=== PATIENT | male | born 1975 | race Caucasian/White ===

== ENCOUNTER 2021-08-11 11:40 | Inpatient (IN) | payer OTHER, MEDICAID ==
[~2021-08-11] VITALS: Ht 177.8 cm; Wt 91.3 kg
[~2021-08-11 11:40] MED LIST: ALEVE220 MG PO; ALPRAZOLAM ER1 MG PO; AMOXICILLIN 50500 MG PO; AUGMENTIN 875875 MG PO; AZITHROMYCIN 2250 MG PO; CARISOPRODOL 3350 MG; CARISOPRODOL 3350 MG PO; CHERATUSSIN DA480 ML PO; CYCLOBENZAPRINE10 MG PO; FLEXERIL PO; FLURBIPROFEN100 MG PO; HYDROCODON-ACE1 EACH PO; HYDROCODONE-AP1 EAC6 PO; IBUPROFEN 200200 M1; IBUPROFEN 600600 M1 PO; IBUPROFEN 800800 MG PO; MEDROLDOSEPACK PO; MOBIC7.5 MG PO; NAPROSYN375 MG PO; NAPROSYN500 MG PO; NAPROXEN250 MG PO; NOHOMEMEDICATIONS; NORCO 5-325 TA1 EAC1 PO; NORCO 5-325 TA1 EACH PO; NORFLEX100 MG PO; PENICILLIN V P500 MG PO; PENICILLIN VK500 M1 PO; PENICILLIN VK500 MG PO; PERCOCET 10-321 EACH PO; PERCOCET 5-3251 EACH PO; PROPRANOLOL 1010 MG PO; PROPRANOLOL 4040 M1 PO; SKELAXIN 800 M800 M1 PO; TRAMADOL 50 MG50 MG PO; TUSSIONEX PENN473 ML PO; TYLENOL325 MG; ULTRACET TABLE1 EACH PO; ULTRAM 50MG TAB50 MG PO; VICODIN 5-5001 EACH PO; XANAX 1 MG TABLE1 MG PO; ZANTAC 150MG T150 M1 PO; ZANTAC 150MG T150 MG PO
[2021-08-11 11:50] VITALS: BP 143/91
[2021-08-11 13:32] LABS: ABSOLUTE BASOPHILS 0.1 thou/uL (0.0-0.2); ABSOLUTE LYMPHOCYTES 1.7 thou/uL (0.8-5.3); ABSOLUTE MONOCYTES 0.8 thou/uL (0.0-1.2); ABSOLUTE NEUTROPHILS 9.9 thou/uL (1.6-8.1); BASOPHILS 0.7 %; EOSINOPHILS 0.2 %; HEMATOCRIT 41.4 % (42.0-52.0); HEMOGLOBIN 13.9 gm/dL (14.0-18.0); LYMPHOCYTES 13.8 %; MCH 27.9 pg (26.0-34.0); MCHC 33.6 g/dL (28.0-37.0); MCV 83.3 fL (80.0-100.0); MONOCYTES 6.4 %; MPV 7.3 fl. (7.2-11.1); NUCLEATED RBCS 0 /100WBC; PLATELET COUNT* 282 thou/uL (150-400); POLYS 78.9 %; RBC 4.97 mil/uL (4.50-6.00); RDW-CV 15.1 % (10.5-14.5); WBC 12.6 thou/uL (4.0-11.0)
[2021-08-11 13:41] LABS: CALCIUM 8.6 mg/dL (8.5-10.1); CREATININE 1.1 mg/dL (0.6-1.3); POTASSIUM 3.3 mmol/L (3.5-5.1)
[2021-08-11 13:45] LABS: ALBUMIN 4.1 g/dL (3.4-5.0); TOTAL BILIRUBIN 0.4 mg/dL (<0.1-1.0); TOTAL PROTEIN 7.9 g/dL (6.4-8.2)
[2021-08-11 17:31] VITALS: BP 144/81
[2021-08-11 17:45] VITALS: BP 139/90
[2021-08-11] MEDS ORDERED: LISINOPRIL5 MG PO (19:14)
[2021-08-11] MEDS ORDERED: PROPRANOLOL 20M20 M1 PO (19:14)
[2021-08-11] MEDS ORDERED: NEXIUM 24HR20 M2 PO (19:15)
[2021-08-11 21:45] VITALS: BP 156/99
[2021-08-12 00:46] VITALS: BP 135/89
[2021-08-12 04:50] LABS: HEMATOCRIT 35.6 % (42.0-52.0); MCH 28.1 pg (26.0-34.0); MCHC 33.8 g/dL (28.0-37.0); MPV 7.5 fl. (7.2-11.1); RBC 4.29 mil/uL (4.50-6.00)
[2021-08-12 05:02] LABS: CALCIUM 7.3 mg/dL (8.5-10.1); CREATININE 0.9 mg/dL (0.6-1.3); POTASSIUM 3.2 mmol/L (3.5-5.1)
[2021-08-12 08:00] VITALS: BP 147/86
--- NOTE | 2021-08-12 09:24 | EKG ---
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
[2021-08-12 13:17] LABS: AMP/METHAMP Negative (Negative); BARBITURATES Negative (Negative); BENZODIAZEPINES Negative (Negative); COCAINE Negative (Negative); METHADONE Negative (Negative); OPIATES POSITIVE (Negative); PCP Negative (Negative); THC Negative (Negative)
[2021-08-12 16:00] VITALS: BP 150/95
[2021-08-12 20:15] VITALS: BP 147/89
[2021-08-13 08:01] LABS: ABSOLUTE BASOPHILS 0.1 thou/uL (0.0-0.2); ABSOLUTE EOSINOPHILS 0.2 thou/uL (0.0-0.7); ABSOLUTE LYMPHOCYTES 1.7 thou/uL (0.8-5.3); ABSOLUTE MONOCYTES 0.5 thou/uL (0.0-1.2); BASOPHILS 1.1 %; EOSINOPHILS 3.3 %; HEMATOCRIT 33.3 % (42.0-52.0); HEMOGLOBIN 11.4 gm/dL (14.0-18.0); MCH 28.6 pg (26.0-34.0); MCHC 34.1 g/dL (28.0-37.0); MCV 83.7 fL (80.0-100.0); MONOCYTES 8.6 %; MPV 7.2 fl. (7.2-11.1); NUCLEATED RBCS 0 /100WBC; PLATELET COUNT* 183 thou/uL (150-400); RBC 3.98 mil/uL (4.50-6.00); RDW-CV 14.8 % (10.5-14.5); WBC 5.4 thou/uL (4.0-11.0)
[2021-08-13 08:10] VITALS: BP 116/81
[2021-08-13 08:12] LABS: CALCIUM 7.8 mg/dL (8.5-10.1); CREATININE 0.9 mg/dL (0.6-1.3); MAGNESIUM 1.7 mg/dL (1.8-2.4); PHOSPHORUS* 2.9 mg/dL (2.5-4.9); POTASSIUM 3.4 mmol/L (3.5-5.1)
[2021-08-13 15:30] VITALS: BP 133/86
[2021-08-13 19:48] VITALS: BP 145/83
[2021-08-14 05:42] LABS: MAGNESIUM 1.8 mg/dL (1.8-2.4); POTASSIUM 3.3 mmol/L (3.5-5.1)
[2021-08-14 08:00] VITALS: BP 150/87
[2021-08-14] MEDS ORDERED: PNV 29-1 TABLE1 EACH PO (09:50)
[2021-08-14] MEDS ORDERED: VITAMIN B-1100 M2 PO (09:50)
[2021-08-14 12:38] VITALS: BP 150/87
[2021-08-14 12:55] VITALS: BP 150/87
== END 2021-08-14 13:00 | disposition home or self-care (01) | DRG 440 ==
LOC: M.ERS 11:40 → M.3W 15:00 → M.TBA-ER 15:00 → M.3W 17:39
PROVIDERS: Family Medicine; Nurse Practitioner Family; ADMIT Internal Medicine; ATTEND Internal Medicine
DX: K85.20 Alcohol induced acute pancreatitis without necrosis or infection (principal); Z20.822 Contact with and (suspected) exposure to COVID-19; E87.6 Hypokalemia; I10 Essential (primary) hypertension; K21.9 Gastro-esophageal reflux disease without esophagitis; Z71.41 Alcohol abuse counseling and surveillance of alcoholic; Z87.891 Personal history of nicotine dependence

== ENCOUNTER 2021-10-17 09:32 | Inpatient (IN) | payer OTHER, MEDICAID ==
[~2021-10-17] VITALS: Ht 177.8 cm; Wt 88.5 kg
[~2021-10-17 09:32] MED LIST changes: +LISINOPRIL5 MG PO; +NEXIUM 24HR20 M2 PO; +PNV 29-1 TABLE1 EACH PO; +PROPRANOLOL 20M20 M1 PO; +VITAMIN B-1100 M2 PO
[2021-10-17 10:16] VITALS: BP 130/96
[2021-10-17 11:04] LABS: ABSOLUTE BASOPHILS 0.1 thou/uL (0.0-0.2); ABSOLUTE LYMPHOCYTES 1.5 thou/uL (0.8-5.3); ABSOLUTE MONOCYTES 0.5 thou/uL (0.0-1.2); ABSOLUTE NEUTROPHILS 4.6 thou/uL (1.6-8.1); HEMATOCRIT 39.9 % (42.0-52.0); HEMOGLOBIN 13.6 gm/dL (14.0-18.0); LYMPHOCYTES 22.3 %; MCV 85.1 fL (80.0-100.0); MONOCYTES 7.4 %; MPV 7.1 fl. (7.2-11.1); NUCLEATED RBCS 0 /100WBC; PLATELET COUNT* 311 thou/uL (150-400); POLYS 69.3 %; RBC 4.69 mil/uL (4.50-6.00); RDW-CV 17.4 % (10.5-14.5); WBC 6.7 thou/uL (4.0-11.0)
[2021-10-17 11:12] LABS: CALCIUM 8.6 mg/dL (8.5-10.1); CREATININE 2.5 mg/dL (0.6-1.3); POTASSIUM 3.3 mmol/L (3.5-5.1)
[2021-10-17 11:16] LABS: ALBUMIN 4.1 g/dL (3.4-5.0); TOTAL BILIRUBIN 0.4 mg/dL (<0.1-1.0); TOTAL PROTEIN 8.3 g/dL (6.4-8.2)
--- NOTE | 2021-10-17 11:23 | NUR ---
SPOKE TO POISON CONTROL NIKKI REGARDING ALCOHOL POSIONING. SHE RECOMMENDS AN ISOPROPYL LEVEL, ACETONE, SERUM OSMOLARITY, CO INGESTION LAVS INCLUDING TYLENOL AND SALYILATE, AND SUPPORTIVE CARE. SPOKE TO MARGARITA BUSCH REGARDING FINDINGS
[2021-10-17 11:47] LABS: SALICYLATE < 2.8 mg/dL (2.8-20.0)
[2021-10-17 11:48] LABS: ACETAMINOPHEN < 2 ug/mL (10-30)
--- NOTE | 2021-10-17 11:58 | EKG ---
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 : 1975 Requested By: Lopez Herrera Order Number: [id number] MD: Fidencio Cruz Measurements Intervals [place] Rate: 112 P: 58 [place]: 144 QRS: 10 QRSD: 99 T: 6 QT: 334 QTc: 456 Interpretive Statements Sinus tachycardia Low voltage, precordial leads Baseline wander in lead(s) V4 Compared to ECG 08/11/2021 15:02:46 Low QRS voltage now present Sinus rate has increased Electronically Signed On 10-17-2021 11:57:48 LIFE CONSULTANT by Fidencio Cruz [email or web address] <ELECTRONICALLY SIGNED> By: Fidencio Cruz MD, FAC 10/17/21 1157 1052 1052 Fidencio Cruz MD, [facility] /EPI
[2021-10-17 12:06] LABS: URINE BILIRUBIN NEGATIVE (Negative); URINE BLOOD TRACE (Negative); URINE CLARITY CLEAR; URINE COLOR YELLOW; URINE GLUCOSE-RANDOM NEGATIVE (Negative); URINE KETONES 1+ (Negative); URINE LEUKOCYTES-REFLEX NEGATIVE (Negative); URINE NITRITE-REFLEX NEGATIVE (Negative); URINE PROTEIN 1+ (Negative); URINE UROBILINOGEN 0.2 E.U./dl (0.2-1.0)
[2021-10-17 12:37] LABS: CASTS None Seen /LPF (None Seen); SQUAMOUS NONE SEEN /LPF (0-3); URINE RBC None Seen /HPF (0-2); URINE WBC-REFLEX 0-5 Rare /HPF (0-5)
[2021-10-17 12:38] LABS: BACTERIA-REFLEX None Seen /HPF (None Seen); CRYSTALS None Seen /LPF (None Seen)
[2021-10-17 14:20] LABS: AMP/METHAMP Negative (Negative); BARBITURATES Negative (Negative); BENZODIAZEPINES Negative (Negative); COCAINE Negative (Negative); METHADONE Negative (Negative); OPIATES Negative (Negative); PCP Negative (Negative); THC Negative (Negative)
[2021-10-17 16:00] VITALS: BP 134/65
[2021-10-17 16:39] LABS: BE -0.3 mmol/L (-2 to +3); PCO2 VENOUS 50.3 mmHg (41.0-51.0); PO2 VENOUS 40.5 mmHg (35.0-45.0)
[2021-10-17 20:08] VITALS: BP 123/70
[2021-10-17 20:45] VITALS: BP 132/66
[2021-10-17 21:00] VITALS: BP 130/80
[2021-10-18] VITALS: BP 120/78
[2021-10-18 04:00] VITALS: BP 119/78
--- NOTE | 2021-10-18 07:34 | NUR ---
RAPID WAS CALLED AT 2044 DUE TO SVT, PT WAS IN THE 200S. PT HAS SOA AND PLACED ON 2L. ADENOSINE 6MG WAS GIVING AND RESOLVED THE SVT. HR MAINTIANED IN THE 90S FOR THE REST OF THE NIGHT.
[2021-10-18 08:48] VITALS: BP 123/83
[2021-10-18 12:00] VITALS: BP 120/82
[2021-10-18 12:32] LABS: ABSOLUTE BASOPHILS 0.1 thou/uL (0.0-0.2); ABSOLUTE EOSINOPHILS 0.1 thou/uL (0.0-0.7); ABSOLUTE LYMPHOCYTES 1.3 thou/uL (0.8-5.3); ABSOLUTE MONOCYTES 0.4 thou/uL (0.0-1.2); ABSOLUTE NEUTROPHILS 2.8 thou/uL (1.6-8.1); BASOPHILS 1.2 %; EOSINOPHILS 1.4 %; HEMATOCRIT 36.2 % (42.0-52.0); HEMOGLOBIN 12.2 gm/dL (14.0-18.0); LYMPHOCYTES 28.1 %; MCH 29.1 pg (26.0-34.0); MCHC 33.6 g/dL (28.0-37.0); MCV 86.4 fL (80.0-100.0); MONOCYTES 8.3 %; MPV 7.3 fl. (7.2-11.1); NUCLEATED RBCS 0 /100WBC; RBC 4.19 mil/uL (4.50-6.00); RDW-CV 18.3 % (10.5-14.5); WBC 4.7 thou/uL (4.0-11.0)
[2021-10-18 12:36] LABS: PLATELET COUNT* 224 thou/uL (150-400)
[2021-10-18 12:49] LABS: ALBUMIN 3.2 g/dL (3.4-5.0); CALCIUM 8.3 mg/dL (8.5-10.1); CREATININE 1.7 mg/dL (0.6-1.3); POTASSIUM 3.7 mmol/L (3.5-5.1); TOTAL BILIRUBIN 0.3 mg/dL (<0.1-1.0); TOTAL PROTEIN 6.5 g/dL (6.4-8.2)
[2021-10-18 13:59] LABS: CALCIUM 8.6 mg/dL (8.5-10.1); MAGNESIUM 2.1 mg/dL (1.8-2.4); PHOSPHORUS* 2.4 mg/dL (2.5-4.9)
--- NOTE | 2021-10-18 14:15 | NUR ---
Pt is admitted to the hospital with Acute Renal Failure. Pt is alert and oriented. PT has a hx of ETOH abuse. Pt lives in a house with his father with 10 steps to enter. No hx of HH, DME, or SNF. Pt reports he was independent in ADL's and Mobility. Pt reports he saw his PCP about 6 months ago. Pt reports he fills his prescriptions at [facility] on [address] Offered ETOH resources but patient declined. CM to continue to follow for discharge planning.
[2021-10-18 14:57] LABS: PROTIME 10.5 Seconds (9.20-11.50)
[2021-10-18 16:00] VITALS: BP 131/80
[2021-10-18 19:45] VITALS: BP 126/86
[2021-10-19] VITALS: BP 144/95
[2021-10-19 04:00] VITALS: BP 140/70
[2021-10-19 05:11] LABS: CALCIUM 8.3 mg/dL (8.5-10.1); CREATININE 1.2 mg/dL (0.6-1.3); MAGNESIUM 1.9 mg/dL (1.8-2.4); PHOSPHORUS* 2.6 mg/dL (2.5-4.9); POTASSIUM 3.3 mmol/L (3.5-5.1)
--- NOTE | 2021-10-19 06:49 | NUR ---
PT SLEPT WELL OVERNIGHT. RECEIVING IV PAIN MED X2 FOR CO ABD PAIN WITH GOOD RESULT. AMBIEN GIVEN AT HS AND SCHEDULED LORAZEPAM. LAC IVF INFUSING PER PUMP. CIWA 0. ROOM AIR. UP WITH SBA TO BR TO VOID. AM LABS. TELE SR. ABLE TO USE CALL LITE AND MAKE NEEDS KNOWN. BED ALRM ON OVERNIGHT DUE TO MEDICATIONS.
[2021-10-19 08:00] VITALS: BP 133/85
[2021-10-19 11:10] VITALS: BP 131/90
--- NOTE | 2021-10-19 14:07 | NUR ---
PATIENT HAD CALL FROM TELEPSYCHE. TELEPSYCHE CALLED BACK AND WANTS PATIENT TO BE ON LEXAPRO AND VISTARIL FOR ANXIETY. PATINT SHOULD MORRISON OUTPATIENT PSYCHE AD ETOH ABUSE CARE.
[2021-10-19 16:16] VITALS: BP 131/99
--- NOTE | 2021-10-19 20:14 | NUR ---
Assumed care at 0730. Patient cooperative. Wants to go home tomorrow. IV fluids going as ordered. Patient had telepsyche this afternoon. Very cooperative. Getting pain meds every 2-4 hours for what he called pancreatic pain. Also getting timed ativan.
[2021-10-19 20:50] VITALS: BP 141/91
[2021-10-20 00:20] VITALS: BP 150/81
[2021-10-20 04:00] VITALS: BP 146/79
[2021-10-20 08:00] VITALS: BP 137/100
[2021-10-20] MEDS ORDERED: PRENATAL PO (10:11)
[2021-10-20] MEDS ORDERED: LORAZEPAM 1 MG T1 MG PO (10:13)
--- NOTE | 2021-10-20 11:34 | NUR ---
Assumed care of patient 0730 following report. Patient is resting and hopes to go home today. Patient has some abdominal pain, but does not ask for pain medication. Doing well. Patient will be discharged today.
[2021-10-20 11:36] VITALS: BP 137/100
[2021-10-20] MEDS ORDERED: VISTARIL50 MG PO (11:42)
[2021-10-20] MEDS ORDERED: LEXAPRO 10 MG T10 M1 PO (11:42)
--- NOTE | 2021-10-20 13:50 | NUR ---
Patient leaves at this time. Ambulated to lobby. Accompanied by nursing staff. Family here to drive patient home.
== END 2021-10-20 13:40 | disposition home or self-care (01) | DRG 897 ==
LOC: M.ERS 09:32 → M.TBA-ER 12:26 → M.2W 20:15
PROVIDERS: Physician Assistant; ADMIT Internal Medicine; ATTEND Internal Medicine
DX: F10.239 Alcohol dependence with withdrawal, unspecified (principal); N17.9 Acute kidney failure, unspecified; E87.1 Hypo-osmolality and hyponatremia; I10 Essential (primary) hypertension; K21.9 Gastro-esophageal reflux disease without esophagitis; T51.2X1A Toxic effect of 2-Propanol, accidental (unintentional), initial encounter; E87.6 Hypokalemia; E87.8 Other disorders of electrolyte and fluid balance, not elsewhere classified; F39 Unspecified mood [affective] disorder; F32.9 Major depressive disorder, single episode, unspecified; E88.89 Other specified metabolic disorders; Z20.822 Contact with and (suspected) exposure to COVID-19; Z87.891 Personal history of nicotine dependence; Y92.89 Other specified places as the place of occurrence of the external cause